=== PATIENT | male | born 1990 | race Caucasian/White ===

== ENCOUNTER 2017-09-29 09:55 | Emergency (ER) | payer OTHER ==
--- NOTE | 2017-09-29 10:13 | EDPHY ---
H & P Time Seen by Provider: 09/29/17 10:04 HPI/ROS: Chief Complaint: Syncope HPI: 27-year-old male was found on the ground at work unresponsive. He does not have recollection of events. Coworkers had seen him about 3 min prior. He states he has been having some upper respiratory cold-like symptoms for the last week or so but otherwise has been in his usual state health. He is complaining of pain and his forehead. Does not have a history of syncope or seizures in the past. No family history of sudden cardiac , coronary artery disease or seizure disorders. No nausea or vomiting. No chest pain or shortness of breath. He does smoke, drink alcohol and use marijuana. He did use some last night but nothing out of the ordinary. ROS: 10 point Review of Systems is negative except as noted in the HPI. PMH: Asthma Social History: Positive smoking, occasional alcohol, occasional marijuana Family History: No family history of coronary artery disease, sudden cardiac or seizure disorder Physical Exam: Gen: Awake, Alert, Airway Intact HEENT: Head: There is a contusion on his right forehead with some surrounding tenderness, no step-offs or crepitus Eyes: PERRLA, EOMI Ears: No hemotympanum Nose: No epistaxis Mouth: Normal dentition, Airway patent Face: No deformity Neck: non-tender, no stepoff, Full ROM without pain Chest: non-tender, lungs CTA Heart: normal heart tones Abd: soft, non-tender, atraumatic Pelvis: non-tender, stable to AP and Lateral compression Back: atraumatic, no midline tenderness Ext: atramatic, full ROM Skin: no rash Neuro: CN II-XII intact, Strength 5/5 in all extremities, sensation intact in all extremities Constitutional: Initial Vital Signs Temperature (C) 36.6 C 09/29/17 10:06 Heart Rate 88 09/29/17 10:06 Respiratory Rate 16 09/29/17 10:06 Blood Pressure 139/83 H 09/29/17 10:06 O2 Sat (%) 96 09/29/17 10:06 O2 Delivery Mode Room Air Allergies/Adverse Reactions: No Known Allergies Allergy (Verified 09/29/17 10:15) Home Medications: Medication Instructions Recorded Albuterol 09/29/17 Medical Decision Making - Diagnostics EKG Interpretation: ECG time 10:15 a.m., sinus rhythm with a rate of 79, normal axis, normal intervals, there is evidence of an incomplete right bundle branch block. No acute ST or T-wave changes. Imaging Results: Imaging Impressions Head CT 09/29/17 10:09 Impression: There is no acute intracranial abnormality identified on this unenhanced CT evaluation. If there is further clinical concern regarding the patient's symptoms, MR imaging is suggested, if not otherwise contraindicated. Findings were discussed with Alexis Garcia MD at 10:40, on 09/29/2017. ED Course/Re-evaluation: 27-year-old male status post likely syncopal event. He does have tenderness symptoms forehead. He is complaining of headache as well. Will obtain a CT scan rule out intracranial bleed or any other etiology. Will also obtain ECG and laboratory evaluations and reassess. CT scan of the head is negative. ECG shows an incomplete right bundle branch block but otherwise no other findings. Laboratory evaluations negative. Symptoms consistent with syncope. Discharge with outpatient PCP follow-up, return for any concerns. - Data Points Laboratory Results: Laboratory Results 09/29/17 10:16 09/29/17 10:16 09/29/17 09/29/17 10:16 10:16 WBC 12.68 10^3/uL H 10^3/uL (3.80-9.50) RBC 5.41 10^6/uL 10^6/uL (4.40-6.38) Hgb 16.9 g/dL g/dL (13.7-17.5) Hct 48.4 % % (40.0-51.0) MCV 89.5 fL fL (81.5-99.8) MCH 31.2 pg pg (27.9-34.1) MCHC 34.9 g/dL g/dL (32.4-36.7) RDW 12.5 % % (11.5-15.2) Plt Count 310 10^3/uL 10^3/uL (150-400) MPV 8.7 fL fL (8.7-11.7) Neut % (Auto) 72.4 % % (39.3-74.2) Lymph % (Auto) 20.5 % % (15.0-45.0) [place] % (Auto) 5.6 % % (4.5-13.0) Eos % (Auto) 0.3 % L % (0.6-7.6) Baso % (Auto) 0.7 % % (0.3-1.7) Nucleat RBC Rel Count 0.0 % % (0.0-0.2) Absolute Neuts (auto) 9.18 10^3/uL H 10^3/uL (1.70-6.50) Absolute Lymphs (auto) 2.60 10^3/uL 10^3/uL (1.00-3.00) Absolute Monos (auto) 0.71 10^3/uL 10^3/uL (0.30-0.80) Absolute Eos (auto) 0.04 10^3/uL 10^3/uL (0.03-0.40) Absolute Basos (auto) 0.09 10^3/uL 10^3/uL (0.02-0.10) Absolute Nucleated RBC 0.00 10^3/uL 10^3/uL (0-0.01) Immature Gran % 0.5 % % (0.0-1.1) Immature Gran # 0.06 10^3/uL 10^3/uL (0.00-0.10) Sodium 147 mEq/L H mEq/L (134-144) Potassium 4.3 mEq/L mEq/L (3.5-5.2) Chloride 104 mEq/L mEq/L (97-110) Carbon Dioxide 23 mEq/l mEq/l (22-31) Anion Gap 20 mEq/L H mEq/L (8-16) BUN 13 mg/dL mg/dL (7-23) Creatinine 0.9 mg/dL mg/dL (0.7-1.3) Estimated GFR > 60 Glucose 94 mg/dL mg/dL (70-100) Calcium 9.7 mg/dL mg/dL (8.5-10.4) Medications Given: Discontinued Medications Ondansetron HCl (Zofran) 4 mg IVP EDNOW ONE Stop: 09/29/17 10:34 Last Admin: 09/29/17 10:36 Dose: 4 mg Departure - Departure Disposition: Home, Routine, Self-Care Clinical Impression: Syncope, Forehead contusion Condition: Good Instructions: Syncope (ED), Scalp Contusion in Adults (ED) Additional Instructions: Alternate acetaminophen (1000 mg) with ibuprofen (400 mg) every 4 hours as needed for pain. Follow up with a primary care physician in 2-3 days for further evaluation. Make sure to drink plenty of fluids, avoid alcohol. Return to the emergency department for further passing out, worsening headache, uncontrolled nausea or vomiting, or any other concerns. Referrals: Gricelda Hopkins MD [[facility] [place] Primary Care Provider] - As per Instructions
[2017-09-29 10:14] VITALS: TEMP 97.9
--- NOTE | 2017-09-29 10:16 | CPEKG ---
Heart Rate: 79 RR Interval: 759 P-R Interval: 172 QRSD Interval: 114 QT Interval: 356 QTC Interval: 409 P [place]: 66 QRS [place]: 82 T Wave [place]: 39 EKG Severity - ABNORMAL ECG - EKG Impression: SINUS RHYTHM EKG Impression: INCOMPLETE RIGHT BUNDLE BRANCH BLOCK Electronically Signed By: Alexis Garcia 29-Sep-2017 14:47:23
[2017-09-29 10:20] LABS: % IMMATURE GRANULYOCYTES 0.5 % (0.0-1.1); ABSOLUTE IMMATURE GRANULOCYTES 0.06 10^3/uL (0.00-0.10); ADD DIFF? NO; ADD MORPH? NO; ADD SCAN? NO; ATYPICAL LYMPHOCYTE FLAG 0 (0-99); FRAGMENT RBC FLAG 0 (0-99); HEMATOCRIT 48.4 % (40.0-51.0); HEMOGLOBIN 16.9 g/dL (13.7-17.5); LEFT SHIFT FLG 0 (0-99); LIPEMIA HEMOLYSIS FLAG 90 (0-99); MEAN CELL HEMOGLOBIN 31.2 pg (27.9-34.1); MEAN CELL HEMOGLOBIN CONCENTR. 34.9 g/dL (32.4-36.7); MEAN CELL VOLUME 89.5 fL (81.5-99.8); MEAN PLATELET VOLUME 8.7 fL (8.7-11.7); PLATELET CLUMPS FLAG 0 (0-99); PLATELET COUNT 310 10^3/uL (150-400); RED BLOOD CELL COUNT 5.41 10^6/uL (4.40-6.38); RED CELL DISTRIBUTION WIDTH 12.5 % (11.5-15.2)
[2017-09-29] MEDS ORDERED: ONDANSETRON 4 MG/2 ML VIAL IVP ONE (10:33)
[2017-09-29 10:39] LABS: ANION GAP 20 mEq/L (8-16); CALCIUM 9.7 mg/dL (8.5-10.4); CARBON DIOXIDE 23 mEq/l (22-31); CHLORIDE 104 mEq/L (97-110); CREATININE 0.9 mg/dL (0.7-1.3); GLOMERULAR FILTRATION RATE > 60; GLUCOSE 94 mg/dL (70-100); POTASSIUM 4.3 mEq/L (3.5-5.2); SODIUM 147 mEq/L (134-144)
[2017-09-29] MEDS ORDERED: IBUPROFEN 600 MG TAB PO ONE (10:52)
[2017-09-29 11:36] VITALS: BP 131/78; PULSE 87; RESP 18; O2SAT 98
== END 2017-09-29 11:26 | disposition home or self-care (01) ==
LOC: CED 09:55
DX: S00.83XA Contusion of other part of head, initial encounter (principal); R55 Syncope and collapse; J45.909 Unspecified asthma, uncomplicated; F17.200 Nicotine dependence, unspecified, uncomplicated; W19.XXXA Unspecified fall, initial encounter
CPT/HCPCS: 70450-PO; 80048-PO; 85025-PO; 96374; J2405

== ENCOUNTER 2018-03-11 20:45 | Emergency (ER) | payer SELFPAY ==
--- NOTE | 2018-03-11 21:27 | EDPHY ---
HPI/HX/ROS/PE/MDM Narrative: CHIEF COMPLAINT: Unable to see out of left eye HISTORY OF PRESENT ILLNESS: The patient is a 27 y/o male complaining of being unable to see out of his left eye onset yesterday. Yesterday he noticed increased discharge out of his left eye associated with pain and a mild headache. Today the pain has worsened and now his vision is blurry out of his left eye. He has used "artificial tears" without relief of his symptoms. Denies dark visual field. Denies recent head injury, foreign object, sinus problems. His grandfather has a history of glaucoma. No fever, chills, chest pain, shortness of breath, palpitations, vomiting, diarrhea, urinary complaints, lightheadedness. REVIEW OF SYSTEMS: Aside from elements discussed in the HPI, a comprehensive 10-point review of systems was reviewed and is negative. PAST MEDICAL HISTORY: Asthma SOCIAL HISTORY: Lives in [place], mother at bedside, employed in construction VITAL SIGNS: Reviewed by me GENERAL: Well-developed, well-nourished, resting comfortably in no respiratory distress. HEENT: Atraumatic. Visual Acuity: noted from Nurse's notes. 20/25 right eye, 20/100 left eye. Focused examination of the left eye. Sharp discs and pain with movement. Eyelid: Upper and lower eyelid edema with erythema. Pupils: Left pupil 6 mm, right pupil 4 mm. Round and reactive to light, EOMI. Pain with movement of the eye. Conjunctivae: Conjunctival injection. Anterior chamber: Normal, no hyphema or hypopyon Funduscopic: Discs are sharp. No vitreous hemorrhage. Skin: No proptosis, periorbital erythema and mild swelling, no vesicles. Mouth: moist mucous membranes. No erythema or lesions. Neck: supple with no adenopathy. LUNGS: Clear to auscultation bilaterally, no wheezes, rhonchi or rales. CARDIAC: Regular rate and rhythm, no rubs, murmurs or gallops. ABDOMEN: Soft, nontender, nondistended, bowel sounds normal. BACK: No CVA tenderness. EXTREMITIES: No trauma. No edema. Range of motion is normal throughout. NEURO: Alert and oriented, grossly nonfocal. SKIN: Warm and dry, no rash. PSYCHIATRIC: Normal mentation, no agitation. Portions of this note were transcribed by a medical doctor md/medical director. I personally performed a history, physical exam, medical decision making, and confirmed accuracy of information the transcribed note. ED Course: The patient is a 27 y/o male complaining of being unable to see out of his left eye associated with pain and discharge, onset yesterday. On exam his left eye has upper and lower eyelid edema with erythema and conjunctival injection. A tonometer exam will be preformed. 2218: Alcaine 0.5% drops administered to left eye. Tonometer exam preformed: Left Eye: 22mmHg Right Eye: 17mmHg. Labs and left orbit sella CT exam ordered; 1L IV NS administered. 2300: CT scan of the orbits demonstrates no abscess, no enhancement of extraocular muscles. There is slight enhancement of the inferior eyelid. Multiple pages placed to Dr. Woodall via his answering service. No answer as of midnight. I discussed with the patient a plan to follow up tomorrow with Dr. Woodall without fail. We will contact the patient if Dr. Woodall has other recommendations when we are able to consult with him. Patient's phone number is [phone] Patient will follow up with Dr. Woodall tomorrow. He was placed on ofloxacin eyedrops. MDM: Differential diagnosis for the patient's presenting complaints includes corneal abrasion, conjunctivitis, iritis, orbital cellulitis, periorbital cellulitis, glaucoma. - Data Points Imaging Results: Imaging Impressions Internal Auditory Canal CT 03/11/18 22:23 Impression: Question mild cellulitis left supraorbital region and the inferior eyelid. Results called and discussed with Calli Canchola MD at 03/11/2018 23:15. Imaging: Discussed imaging studies w/ faculty i on call medical assistant Radiologist Laboratory Results: Laboratory Results 03/11/18 22:30 03/11/18 22:30 03/11/18 03/11/18 22:30 22:30 WBC 10.66 10^3/uL H 10^3/uL (3.80-9.50) RBC 5.28 10^6/uL 10^6/uL (4.40-6.38) Hgb 16.4 g/dL g/dL (13.7-17.5) Hct 46.9 % % (40.0-51.0) MCV 88.8 fL fL (81.5-99.8) MCH 31.1 pg pg (27.9-34.1) MCHC 35.0 g/dL g/dL (32.4-36.7) RDW 12.1 % % (11.5-15.2) Plt Count 293 10^3/uL 10^3/uL (150-400) MPV 9.1 fL fL (8.7-11.7) Neut % (Auto) 51.0 % % (39.3-74.2) Lymph % (Auto) 38.0 % % (15.0-45.0) [place] % (Auto) 8.6 % % (4.5-13.0) Eos % (Auto) 1.5 % % (0.6-7.6) Baso % (Auto) 0.6 % % (0.3-1.7) Nucleat RBC Rel Count 0.0 % % (0.0-0.2) Absolute Neuts (auto) 5.44 10^3/uL 10^3/uL (1.70-6.50) Absolute Lymphs (auto) 4.05 10^3/uL H 10^3/uL (1.00-3.00) Absolute Monos (auto) 0.92 10^3/uL H 10^3/uL (0.30-0.80) Absolute Eos (auto) 0.16 10^3/uL 10^3/uL (0.03-0.40) Absolute Basos (auto) 0.06 10^3/uL 10^3/uL (0.02-0.10) Absolute Nucleated RBC 0.00 10^3/uL 10^3/uL (0-0.01) Immature Gran % 0.3 % % (0.0-1.1) Immature Gran # 0.03 10^3/uL 10^3/uL (0.00-0.10) Sodium 143 mEq/L mEq/L (135-145) Potassium 4.0 mEq/L mEq/L (3.3-5.0) Chloride 102 mEq/L mEq/L (97-110) Carbon Dioxide 23 mEq/l mEq/l (22-31) Anion Gap 18 mEq/L H mEq/L (8-16) BUN 10 mg/dL mg/dL (7-23) Creatinine 1.0 mg/dL mg/dL (0.7-1.3) Estimated GFR > 60 Glucose 87 mg/dL mg/dL (70-100) Calcium 10.0 mg/dL mg/dL (8.5-10.4) Medications Given: Discontinued Medications Sodium Chloride (Ns) 1,000 mls @ 0 mls/hr IV ONCE ONE; Wide Open PRN Reason: Protocol Stop: 03/11/18 22:23 Last Admin: 03/11/18 22:35 Dose: 1,000 mls Ketorolac Tromethamine (Toradol) 15 mg IVP EDNOW ONE Stop: 03/11/18 23:23 Last Admin: 03/11/18 23:35 Dose: 15 mg Ofloxacin (Ocuflox 0.3% Opht Drops Prepack) 1 btl TAKEHOME EDNOW ONE Stop: 03/11/18 23:26 Last Admin: 03/11/18 23:35 Dose: 1 btl Proparacaine HCl (Alcaine 0.5%) 1 drops EACHEYE ONCE ONE Stop: 03/11/18 22:10 Last Admin: 03/11/18 22:17 Dose: 2 drop General Time Seen by Provider: 03/11/18 21:25 Initial Vital Signs: Initial Vital Signs Temperature (C) 37.1 C 03/11/18 20:48 Heart Rate 105 H 03/11/18 20:48 Respiratory Rate 16 03/11/18 20:48 Blood Pressure 138/84 H 03/11/18 20:48 O2 Sat (%) 94 03/11/18 20:48 O2 Delivery Mode Room Air Allergies/Adverse Reactions: No Known Allergies Allergy (Verified 03/11/18 20:50) Home Medications: Medication Instructions Recorded Albuterol 09/29/17 Departure - Departure Disposition: Home, Routine, Self-Care Clinical Impression: Decreased visual acuity, Left eye pain Conjunctivitis Qualifiers: Conjunctivitis type: acute Acute conjunctivitis type: unspecified Laterality: left Qualified Code(s): H10.32 - Unspecified acute conjunctivitis, left eye Condition: Good Instructions: Blurred Vision (ED), Eye Pain (ED), Conjunctivitis (ED) Additional Instructions: Use Ofloxacin as prescribed. Use 1-2 drops every 2-3 hours for the first 24 hours. After the first 24 hours, use 1-2 drops every 4-6 hours for additional 5 days. Okay to take ibuprofen 600 mg every 6-8 hours for discomfort. Follow up with an process description writer, you have been referred to Dr. Woodall. Return to the Emergency Department for severe headache, vomiting, vision changes , confusion, fever or other concerns. Referrals: Hunter Woodall MD [Medical Doctor] - As per Instructions Report Scribed for: Calli Canchola Report Scribed by: Salud Monterroso Date of Report: 03/11/18 Time of Report: 21:27
[2018-03-11] MEDS ORDERED: PROPARACAINE 0.5% 15 ML OPHT DROP EACHEYE ONE (22:09)
[2018-03-11] MEDS ORDERED: NS 1,000 ML IV ONE (22:22)
[2018-03-11 22:40] LABS: PLATELET COUNT 293 10^3/uL (150-400)
[2018-03-11] MEDS ORDERED: IOPAMIDOL (ISOVUE-300) 100 ML BTL ONE (22:43)
[2018-03-11] MEDS ORDERED: KETOROLAC 15 MG/1 ML SDV IVP ONE (23:22)
[2018-03-11] MEDS ORDERED: OFLOXACIN 0.3% SOLN PREPACK OPHT.BTL TAKEHOME ONE (23:25)
[2018-03-12 00:15] VITALS: BP 129/77
== END 2018-03-12 00:02 | disposition home or self-care (01) ==
DX: H10.32 Unspecified acute conjunctivitis, left eye (principal); H53.9 Unspecified visual disturbance; J45.909 Unspecified asthma, uncomplicated
CPT/HCPCS: 96374; J1885; Q9967